=== PATIENT | male | born 1950 | race Caucasian/White ===

== ENCOUNTER 2020-03-09 00:51 | Outpatient (CLI) | payer MEDICARE, SELFPAY ==
[2020-03-09 18:38] LABS: SARS-CoV-2 RNA PCR Negative
== END 2020-03-09 00:52 | disposition home or self-care (01) ==
LOC: ANHCOVIDDT 00:51
PROVIDERS: PCP Family Medicine; Visit Provider Internal Medicine Gastroenterology
DX: Z01.812 Encounter for preprocedural laboratory examination (principal); Z20.828 Contact with and (suspected) exposure to other viral communicable diseases
CPT/HCPCS: 87635; C9803; U0003

== ENCOUNTER 2020-03-11 01:35 | Day surgery (SDC) | payer MEDICARE, SELFPAY ==
[2020-03-07 13:41] VITALS: BMI 31.1
[2020-03-11 07:55] VITALS: BP 117/74; PULSE 62; RESP 20; TEMP 36.1; O2SAT 98
[2020-03-11] MEDS: LACTATED RINGERS 1,000 ML 150 ML IV CONT (08:11)
--- NOTE | 2020-03-11 08:23 | WPDGICN ---
Assessment and Plan Assessment and plan (1) History of colon polyps: Code(s): Z86.010 - Personal history of colonic polyps Status: Acute Assessment and Plan: Patient has a distant history of adenomatous colon polyps. Plan is for surveillance colonoscopy at this time. High-fiber diet advised. Further recommendations will be given after endoscopy. GI Consult Note Consult date/time: 03/11/20 08:23 HPI: Jens Solares is a 69 year old male seen in evaluation at the request of Dr Blanca Liu. patient presents for screening colonoscopy. Patient has a history of adenomatous colon polyp in 2003. Most recent colonoscopy 2011 revealed several hyperplastic polyps. Patient presents today for follow-up examination. His current weight appetite bowel once normal. Denies abdominal pain. He has had no bleeding. His family history is noncontributory. Review of Systems Review of Systems: All systems reviewed & are unremarkable except as noted in HPI and below PMFSH Past Medical History Medical History (Updated 03/11/20 @ 08:24 by Brian Soto MD) Essential (primary) hypertension Gastro-esophageal reflux disease without esophagitis Hepatitis C antibody test negative Hypercholesterolemia Mixed hyperlipidemia Obesity (BMI 30.0-34.9) Obstructive sleep apnea (adult) (pediatric) Prostate cancer Surgical History Surgical History H/O colonoscopy (~2011) Family History Family History Father Diabetes mellitus Malignant neoplasm of prostate Family history of lung cancer Grandparent Hypertension Malignant neoplasm of prostate Other Acute myocardial infarction Social History Social History Years smoked: 5 Smoking status: Former smoker Tobacco type: cigarettes Second hand tobacco smoke exposure: No Smoking end date: 05/27/82 Additional smoking assessment comments: 1 pack per week Alcohol intake: current Drinks per week: 6 Living arrangements: with family Gender identity (if verbalized by the patient): Male Spiritual care concerns: No Meds Home Medications and Allergies Home Medications Medication Instructions Recorded Confirmed Type aspirin 81 mg tablet,delayed 81 mg PO DAILY #30 tablet 03/31/19 03/07/20 Rx release dorzolamide 22.3 mg-timolol 6.8 1 drop EACH EYE BID 04/20/19 03/07/20 History mg/mL eye drops epinephrine 0.3 mg/0.3 mL 0.3 mg IM ONCE 04/20/19 03/07/20 History injection, auto-injector fluticasone propionate 50 2 spray NASAL PRN PRN 04/20/19 03/07/20 History mcg/actuation nasal spray,suspension nystatin-triamcinolone 100,000 1 applic TOPICAL PRN PRN 04/20/19 03/07/20 History unit/g-0.1 % topical cream omeprazole 20 mg capsule,delayed 20 mg PO DAILY cap 04/20/19 03/07/20 History release travoprost 0.004 % eye drops 1 drop EACH EYE HS ml 04/20/19 03/07/20 History latanoprost 0.005 % eye drops 1 drop EACH EYE DAILY 04/21/19 03/07/20 History multivitamin 1 tablet PO DAILY 04/21/19 03/07/20 History losartan 50 mg tablet 50 mg PO DAILY #90 tablet 07/16/19 03/07/20 Rx escitalopram oxalate 10 mg tablet 10 mg PO DAILY #90 tablet 12/11/19 03/07/20 Rx atorvastatin 10 mg tablet 10 mg PO DAILY #90 tablet 01/26/20 03/07/20 Rx Allergies Allergy/AdvReac Type Severity Reaction Status Date / Time iohexol Allergy Unknown Unknown Verified 03/11/20 07:53 [From CONTRAST - CT, XRAY] bee venom protein (honey bee) Allergy SWELLING,IT Verified 03/11/20 07:53 ABRIL Vital Signs Vital Signs - 24 hr 03/11/20 07:55 Temperature 97.0 F L Pulse Rate 62 Respiratory Rate 20 Blood Pressure 117/74 Pulse Oximetry 98 Exam Narrative: Exam Narrative: Physical exam reveals patient to be alert. Vital signs stable. HEENT exam unremarkable. Lungs are clear to ausc
--- NOTE | 2020-03-11 08:46 | WPDANESEPPF ---
Anes - Initial Pre Proc Eval Procedure: Operation Date: 03/11/20 09:00 Proposed Procedures p Screening Colonoscopy - Brian Soto MD Date/Time: 03/11/20 08:46 Surgeon: Brian Soto MD Pre Op Diagnosis: neoplasm screening Patient Data Age: 69 Gender: M Height: 6 ft 2 in Weight: 112 kg Last Vital Signs Temp 97.0 F L 03/11/20 07:55 Pulse 62 03/11/20 07:55 Resp 20 03/11/20 07:55 BP 117/74 03/11/20 07:55 Pulse Ox 98 03/11/20 07:55 Allergies Allergy/AdvReac Type Severity Reaction Status Date / Time iohexol Allergy Unknown Unknown Verified 03/11/20 07:53 [From CONTRAST - CT, XRAY] bee venom protein (honey bee) Allergy SWELLING,IT Verified 03/11/20 07:53 ABRIL Home Medications Medication Instructions Recorded Confirmed Type aspirin 81 mg tablet,delayed 81 mg PO DAILY #30 tablet 03/31/19 03/07/20 Rx release dorzolamide 22.3 mg-timolol 6.8 1 drop EACH EYE BID 04/20/19 03/07/20 History mg/mL eye drops epinephrine 0.3 mg/0.3 mL 0.3 mg IM ONCE 04/20/19 03/07/20 History injection, auto-injector fluticasone propionate 50 2 spray NASAL PRN PRN 04/20/19 03/07/20 History mcg/actuation nasal spray,suspension nystatin-triamcinolone 100,000 1 applic TOPICAL PRN PRN 04/20/19 03/07/20 History unit/g-0.1 % topical cream omeprazole 20 mg capsule,delayed 20 mg PO DAILY cap 04/20/19 03/07/20 History release travoprost 0.004 % eye drops 1 drop EACH EYE HS ml 04/20/19 03/07/20 History latanoprost 0.005 % eye drops 1 drop EACH EYE DAILY 04/21/19 03/07/20 History multivitamin 1 tablet PO DAILY 04/21/19 03/07/20 History losartan 50 mg tablet 50 mg PO DAILY #90 tablet 07/16/19 03/07/20 Rx escitalopram oxalate 10 mg tablet 10 mg PO DAILY #90 tablet 12/11/19 03/07/20 Rx atorvastatin 10 mg tablet 10 mg PO DAILY #90 tablet 01/26/20 03/07/20 Rx Patient hx anesthesia problems: none Family hx anesthesia problems: none PMFSH Past Medical History Medical History (Updated 03/11/20 @ 08:24 by Brian Soto MD) Essential (primary) hypertension Gastro-esophageal reflux disease without esophagitis Hepatitis C antibody test negative Hypercholesterolemia Mixed hyperlipidemia Obesity (BMI 30.0-34.9) Obstructive sleep apnea (adult) (pediatric) Prostate cancer Surgical History Surgical History H/O colonoscopy (~2011) Family History Family History Father Diabetes mellitus Malignant neoplasm of prostate Family history of lung cancer Grandparent Hypertension Malignant neoplasm of prostate Other Acute myocardial infarction Social History Social History Years smoked: 5 Smoking status: Former smoker Tobacco type: cigarettes Second hand tobacco smoke exposure: No Smoking end date: 05/27/82 Additional smoking assessment comments: 1 pack per week Alcohol intake: current Drinks per week: 6 Living arrangements: with family Gender identity (if verbalized by the patient): Male Spiritual care concerns: No Anes - Eval Final PreProcedure Day of Procedure 03/11/20 08:46 Patient weight: obese Heart: regular rate and rhythm Lungs: clear to auscultation Airway: Mallampati scale class II Neurological: alert and oriented Last oral intake: >/= 8 hours ASA classification: III Emergent: no Anesthetic plan: proceed Anesthesia type and monitoring: general GIVS and standard monitoring Informed Consent: The patient's anesthetic plan and its attendant risks and benefits were discussed with the patient/family/POA. Questions were solicited and answers provided to the satisfaction of the patient/family/POA.
[2020-03-11 09:12] VITALS: BP 115/77; PULSE 63; RESP 16; O2SAT 96
[2020-03-11 09:22] VITALS: BP 119/79; PULSE 61; RESP 16; O2SAT 97
[2020-03-11 09:32] VITALS: BP 116/74; PULSE 66; RESP 16; O2SAT 97
== END 2020-03-11 09:51 | disposition home or self-care (01) ==
PROVIDERS: PCP Family Medicine; Visit Provider Internal Medicine Gastroenterology
PROC: 0DJD8ZZ Inspection of Lower Intestinal Tract, Via Natural or Artificial Opening Endoscopic (ICD-10-PCS; CPT 45378; principal; 2020-03-11 09:00)
DX: Z12.11 Encounter for screening for malignant neoplasm of colon (principal); K57.30 Diverticulosis of large intestine without perforation or abscess without bleeding; K64.8 Other hemorrhoids; Z86.010 Personal history of colon polyps; I10 Essential (primary) hypertension; E78.2 Mixed hyperlipidemia; K21.9 Gastro-esophageal reflux disease without esophagitis; G47.33 Obstructive sleep apnea (adult) (pediatric); Z85.46 Personal history of malignant neoplasm of prostate; Z87.891 Personal history of nicotine dependence; Z79.82 Long term (current) use of aspirin; E66.9 Obesity, unspecified; Z68.31 Body mass index [BMI] 31.0-31.9, adult
CPT/HCPCS: G0105; J2704; J7120

== ENCOUNTER 2022-06-20 14:42 | Emergency (ER) | payer MEDICARE, SELFPAY ==
--- NOTE | ~2022-06-20 | US_ITS ---
EXAMINATION: US venous doppler [facility] DATE: 06/20/2022 15:50 INDICATION: pain and swelling, left leg. TECHNIQUE: Grayscale images without and with compression and Doppler images of the left lower extremi ty veins were obtained. COMPARISON: None FINDINGS: The left common femoral vein, profunda femoral vein, femoral vein, popliteal vein, peroneal vein, pos terior tibial veins, gastrocnemius vein, and greater saphenous vein are patent. IMPRESSION: 1. Patent left lower extremity veins. No evidence of deep venous thrombosis. Reviewed, dictated and finalized at location [facility]
[2022-06-20 14:48] VITALS: BP 147/81; PULSE 99; RESP 14; TEMP 36.4; O2SAT 98
[2022-06-20 15:11] LABS: Appearance Urine Cloudy (Clear); Bilirubin Urine Negative (Negative); Blood Urine 3+ (Negative); Color Urine Yellow (Yellow); Glucose Urine UA Negative (Negative); Ketones Urine Negative (Negative); Leukocyte Esterase Ur 1+ LEU/UL (Negative); Nitrate Urine Positive (Negative); Protein Urine 2+ mg/dL (Negative); Urobilinogen Urine 0.2 mg/dL (<2.0); pH Urine 6.5 (5.0-9.0)
[2022-06-20 15:23] LABS: Add Urine Microscopic? YES; Bacteria Urine Trace /hpf; Mucus Urine Rare /lpf; RBC Urine >75 /hpf (0-2); Squamous Epithelial Cell Urine Few /hpf (Few); WBC Clumps Urine Present /HPF; WBC Urine >75 /hpf
--- NOTE | 2022-06-20 15:49 | ED.GENADULT ---
HPI - General Adult General Chief complaint: Extremity Problem,Nontraumatic Stated complaint: extremity problem Time Seen by Provider: 06/20/22 14:55 History of Present Illness HPI narrative: 71-year-old male history of, dyslipidemia, GERD, depression, prostate cancer, DVT presents to the emergency room for multiple medical problems. Patient states 5 days ago he noticed a tender red area to his left inner thigh. Since the onset he has noticed the redness has moved down his leg into his calf. Denies any injury or trauma. Denies fevers. Patient also complaining of hematuria without dysuria. Related Data Home Medications Medication Instructions Recorded Confirmed dorzolamide 22.3 mg-timolol 6.8 1 drop ophthalmic (eye) BID 04/20/19 02/13/22 mg/mL eye drops epinephrine 0.3 mg/0.3 mL 0.3 mg IM ONCE 04/20/19 02/13/22 injection, auto-injector fluticasone propionate 50 2 spray intranasal PRN PRN 04/20/19 02/13/22 mcg/actuation nasal Congestion spray,suspension omeprazole 20 mg capsule,delayed 20 mg PO DAILY 04/20/19 02/13/22 release travoprost 0.004 % eye drops 1 drop ophthalmic (eye) HS 04/20/19 02/13/22 (Travatan Z) latanoprost 0.005 % eye drops 1 drop ophthalmic (eye) DAILY 04/21/19 02/13/22 multivitamin 1 tablet PO DAILY 04/21/19 02/13/22 Allergies Allergy/AdvReac Type Severity Reaction Status Date / Time iohexol Allergy Unknown Unknown Verified 06/20/22 14:53 [From CONTRAST - CT, XRAY] bee venom protein (honey bee) Allergy SWELLING,IT Verified 06/20/22 14:53 ABRIL Review of Systems Review of Systems: CONSTITUTIONAL: Denies fever, chills, or sweats. EYES: Denies visual changes, redness, or discharge. ENT: Denies rhinorrhea, congestion, sore throat, or otalgia. CARDIOVASCULAR: Denies chest pain, palpitations, or edema. RESPIRATORY: Denies cough or dyspnea. GASTROINTESTINAL: Denies abdominal pain, nausea, vomiting, or diarrhea. GENITOURINARY: Reports hematuria. SKIN: Denies rash or itching. MUSCULOSKELETAL: Denies back pain, joint pain, or myalgia. NEUROLOGIC: Denies headache, numbness, dizziness, or weakness. PSYCHIATRIC: Denies anxiety or depression. [facility] Past Medical History Medical History Essential (primary) hypertension Gastro-esophageal reflux disease without esophagitis Hepatitis C antibody test negative (04/19/17) Hypercholesterolemia Mixed hyperlipidemia Obesity (BMI 30.0-34.9) Obstructive sleep apnea (adult) (pediatric) Prostate cancer Surgical History Surgical History H/O colonoscopy (~2011) Family History Family History Father Diabetes mellitus Malignant neoplasm of prostate Family history of lung cancer Grandparent Hypertension Malignant neoplasm of prostate Other Acute myocardial infarction Social History Social History Years smoked: 5 Smoking status: Former smoker Tobacco type: cigarettes Second hand tobacco smoke exposure: No Smoking end date: 05/27/82 Additional smoking assessment comments: 1 pack per week Alcohol intake: current Drinks per week: 6 Lack of Transportation: No Lack of Food: Never True Current Housing: I Have Housing Concerned About Future Housing: No Difficulty Paying Gas/Electric Bills: No Difficulty Paying for Meds: No Currently Unemployed: No Education: Master's Degree or Higher Difficulty w/ Childcare or Family Care: No Living arrangements: with family Gender identity (if verbalized by the patient): Male Spiritual care concerns: No Exam Narrative: GENERAL: Well-appearing, well-nourished, no physical limitations, and in no acute distress. HEAD: Normocephalic, atraumatic. EYES: Conjunctivae normal, PERRLA and EOMI. CHEST: Clear to auscultation. No respiratory distress.
[2022-06-20 16:24] VITALS: BP 156/76; PULSE 90; RESP 14; TEMP 37.1; O2SAT 100
== END 2022-06-20 16:34 | disposition home or self-care (01) ==
PROVIDERS: Emergency Provider Nurse Practitioner Family; PCP Family Medicine
DX: I80.3 Phlebitis and thrombophlebitis of lower extremities, unspecified (principal); N39.0 Urinary tract infection, site not specified; I10 Essential (primary) hypertension; K21.9 Gastro-esophageal reflux disease without esophagitis; E78.5 Hyperlipidemia, unspecified; G47.30 Sleep apnea, unspecified
CPT/HCPCS: 81001; 87077; 87086; 87186; 93971; 99284

== ENCOUNTER 2022-08-30 15:26 | Emergency (ER) | payer MEDICARE, SELFPAY ==
[2022-08-30 15:38] VITALS: BP 140/82; PULSE 73; RESP 16; TEMP 36.2; O2SAT 97
--- NOTE | 2022-08-30 15:46 | ED.SKABFB ---
HPI - Skin/Abscess/Foreign Bdy General Chief complaint: Skin/Abscess/Foreign Body Stated complaint: Skin Problem Source: patient and RN notes reviewed History of Present Illness HPI narrative: 72-year-old male presents to urgent care with an abscess to his right back. Patient states he has had this for quite some time but the last 2-3 days it has gotten inflamed. Patient reports some drainage from the area the other day. Patient did apply Neosporin the area. Denies any fevers, chills, or other complaints. Related Data Home Medications Medication Instructions Recorded Confirmed dorzolamide 22.3 mg-timolol 6.8 1 drop ophthalmic (eye) BID 04/20/19 08/30/22 mg/mL eye drops epinephrine 0.3 mg/0.3 mL 0.3 mg IM ONCE 04/20/19 08/30/22 injection, auto-injector fluticasone propionate 50 2 spray intranasal PRN PRN 04/20/19 08/30/22 mcg/actuation nasal Congestion spray,suspension omeprazole 20 mg capsule,delayed 20 mg PO DAILY 04/20/19 07/06/22 release travoprost 0.004 % eye drops 1 drop ophthalmic (eye) HS 04/20/19 07/06/22 (Travatan Z) latanoprost 0.005 % eye drops 1 drop ophthalmic (eye) DAILY 04/21/19 08/30/22 multivitamin 1 tablet PO DAILY 04/21/19 07/06/22 Allergies Allergy/AdvReac Type Severity Reaction Status Date / Time iohexol Allergy Unknown Unknown Verified 08/30/22 16:06 [From CONTRAST - CT, XRAY] bee venom protein (honey bee) Allergy SWELLING,IT Verified 08/30/22 16:06 ABRIL Review of Systems Review of Systems: CONSTITUTIONAL: Denies fever, chills, or sweats. EYES: Denies visual changes, redness, or discharge. ENT: Denies otalgia and sore throat CARDIOVASCULAR: Denies chest pain, palpitations, or edema. RESPIRATORY: Denies cough or dyspnea. GASTROINTESTINAL: Denies abdominal pain, nausea, vomiting, or diarrhea. GENITOURINARY: Denies dysuria or hematuria. SKIN: Abscess MUSCULOSKELETAL: Denies back pain, joint pain, or myalgia. NEUROLOGIC: Denies headache, numbness, or weakness. Pertinent positives per HPI. PMFSH Past Medical History Medical History Essential (primary) hypertension Gastro-esophageal reflux disease without esophagitis Hepatitis C antibody test negative (04/19/17) Hypercholesterolemia Mixed hyperlipidemia Obesity (BMI 30.0-34.9) Obstructive sleep apnea (adult) (pediatric) Prostate cancer Surgical History Surgical History H/O colonoscopy (~2011) Family History Family History Father Diabetes mellitus Malignant neoplasm of prostate Family history of lung cancer Grandparent Hypertension Malignant neoplasm of prostate Other Acute myocardial infarction Social History Social History Years smoked: 5 Smoking status: Former smoker Tobacco type: cigarettes Second hand tobacco smoke exposure: No Smoking end date: 05/27/82 Additional smoking assessment comments: 1 pack per week Alcohol intake: current Drinks per week: 6 Lack of Transportation: No Lack of Food: Never True Current Housing: I Have Housing Concerned About Future Housing: No Difficulty Paying Gas/Electric Bills: No Difficulty Paying for Meds: No Currently Unemployed: No Education: Master's Degree or Higher Difficulty w/ Childcare or Family Care: No Living arrangements: with family Gender identity (if verbalized by the patient): Male Spiritual care concerns: No Comments At the time of my signature, I reviewed and agree with the nursing past medical, surgical, social, and family history. There is no relevant family history pertinent to the patient complaint. Exam Narrative: GENERAL: This is a well-nourished, well-developed patient, in no apparent distress. HEAD: normocephalic, atraumatic. EYES: Sclera clear/white. [employer]
== END 2022-08-30 16:26 | disposition home or self-care (01) ==
PROVIDERS: Emergency Provider Nurse Practitioner Family
DX: L02.212 Cutaneous abscess of back [any part, except buttock and flank] (principal); Z87.891 Personal history of nicotine dependence; K21.9 Gastro-esophageal reflux disease without esophagitis; E78.00 Pure hypercholesterolemia, unspecified; E78.2 Mixed hyperlipidemia; E66.9 Obesity, unspecified; Z68.32 Body mass index [BMI] 32.0-32.9, adult; Z85.46 Personal history of malignant neoplasm of prostate
CPT/HCPCS: 10160; 87070; 87205; 99213; G0463

== ENCOUNTER 2022-09-05 13:37 | Emergency (ER) | payer MEDICARE, SELFPAY ==
[2022-09-05 13:43] VITALS: BP 157/80; PULSE 70; RESP 14; TEMP 36.6; O2SAT 99
--- NOTE | 2022-09-05 14:41 | ED.SKABFB ---
HPI - Skin/Abscess/Foreign Bdy General Chief complaint: Skin/Abscess/Foreign Body Stated complaint: Abbcesson back Time Seen by Provider: 09/05/22 14:41 Source: patient, RN notes reviewed and old records reviewed Mode of arrival: ambulatory Limitations: no limitations History of Present Illness HPI narrative: 72 year old male who presents to express care with redness swelling and pain to abscess noted to mid back region.Patient reports that he has had this raised fatty type of lesion to his back for months but in past 2 weeks area has become infected. He was here about one week ago and had area drained and was started on Doxycycline. Patient reports that it was initially better and then for the past 2-3 days pain has increased and redness with site burning and tender. Patient denies any known fevers. MD complaint: abscess/boil (mid back) Onset (ago): day(s) (increased symptoms past 2-3 days, initally 2 weeks duration total) Severity scale (1-10): 3 Treatments prior to arrival: antibiotic (taking antibiotic of Doxycycline) Related Data Home Medications Medication Instructions Recorded Confirmed dorzolamide 22.3 mg-timolol 6.8 1 drop ophthalmic (eye) BID 04/20/19 09/05/22 mg/mL eye drops epinephrine 0.3 mg/0.3 mL 0.3 mg IM ONCE 04/20/19 09/05/22 injection, auto-injector fluticasone propionate 50 2 spray intranasal PRN PRN 04/20/19 09/05/22 mcg/actuation nasal Congestion spray,suspension omeprazole 20 mg capsule,delayed 20 mg PO DAILY 04/20/19 09/05/22 release travoprost 0.004 % eye drops 1 drop ophthalmic (eye) HS 04/20/19 09/05/22 (Travatan Z) latanoprost 0.005 % eye drops 1 drop ophthalmic (eye) DAILY 04/21/19 09/05/22 multivitamin 1 tablet PO DAILY 04/21/19 09/05/22 escitalopram oxalate 10 mg tablet 10 mg PO DAILY 09/05/22 09/05/22 Allergies Allergy/AdvReac Type Severity Reaction Status Date / Time iohexol Allergy Unknown Unknown Verified 09/05/22 14:09 [From CONTRAST - CT, XRAY] bee venom protein (honey bee) Allergy SWELLING,IT Verified 09/05/22 14:09 ABRIL Review of Systems Review of Systems: CONSTITUTIONAL: Denies fever, chills, or sweats. EYES: Denies visual changes, redness, or discharge. ENT: Denies rhinorrhea, congestion, sore throat, or otalgia. CARDIOVASCULAR: Denies chest pain, palpitations, or edema. RESPIRATORY: Denies cough or dyspnea. GASTROINTESTINAL: Denies abdominal pain, nausea, vomiting, or diarrhea. GENITOURINARY: Denies dysuria or hematuria. SKIN: Denies rash or itching. red raised tender warm circular area to mid back scabbed center. MUSCULOSKELETAL: Denies back pain, joint pain, or myalgia. NEUROLOGIC: Denies headache, numbness, or weakness. PSYCHIATRIC: Denies anxiety or depression. All systems reviewed & are unremarkable except as noted in HPI and below PMFSH Past Medical History Medical History Essential (primary) hypertension Gastro-esophageal reflux disease without esophagitis Hepatitis C antibody test negative (04/19/17) Hypercholesterolemia Mixed hyperlipidemia Obesity (BMI 30.0-34.9) Obstructive sleep apnea (adult) (pediatric) Prostate cancer Surgical History Surgical History H/O colonoscopy (~2011) Family History Family History Father Diabetes mellitus Malignant neoplasm of prostate Family history of lung cancer Grandparent Hypertension Malignant neoplasm of prostate Other Acute myocardial infarction Social History Social History Years smoked: 5 Smoking status: Former smoker Tobacco type: cigarettes Second hand tobacco smoke exposure: No Smoking end date: 05/27/82 Additional smoking assessment comments: 1 pack per week Alcohol intake: current Drinks per week: 6 Lack of Transportation: No Lack of Food: Ne
== END 2022-09-05 15:30 | disposition home or self-care (01) ==
PROVIDERS: Emergency Provider Registered Nurse; PCP Family Medicine
DX: L72.3 Sebaceous cyst (principal); Z87.891 Personal history of nicotine dependence; I10 Essential (primary) hypertension; K21.9 Gastro-esophageal reflux disease without esophagitis; E78.00 Pure hypercholesterolemia, unspecified; E78.2 Mixed hyperlipidemia; E66.9 Obesity, unspecified; Z68.32 Body mass index [BMI] 32.0-32.9, adult; Z85.46 Personal history of malignant neoplasm of prostate; G47.33 Obstructive sleep apnea (adult) (pediatric)
CPT/HCPCS: 10060; 87070; 87077; 87205; 99213; G0463

== ENCOUNTER 2022-10-10 14:40 | Outpatient (CLI) | payer MEDICARE, SELFPAY ==
--- NOTE | ~2022-10-10 | CT_ITS ---
EXAMINATION: CT abdomen pelvis w con DATE: 10/10/2022 15:02 INDICATION: Paget's disease TECHNIQUE: Computed tomography (CT) of the abdomen and pelvis was performed with 100 mL Omnipaque-350 intravenous contrast. Automated exposure control and iterative reconstruction technique were employe d. The dose-length product was 1343.05 mGy-cm. COMPARISON: CT abdomen dated 09/18/2007 FINDINGS: Minimal dependent atelectasis in bilateral lower lobes. Heart size is normal. No pericardial or pleur al effusion. Diffuse hepatic steatosis with region of focal fatty sparing along the gallbladder fossa and bridgette hepatis. Gallbladder, spleen, pancreas, bilateral adrenal glands are and) normal. Again se en are several parapelvic cysts at the left renal hilum. Incidentally noted circumaortic left renal v eins with smaller anterior draining vein and larger caliber vein draining posterior to the normal haritha iber aorta. Mild to moderate diverticulosis along the descending and sigmoid colon without adjacent c omparison to suggest diverticulitis. Small bowel and appendix are normal. Bladder is normal. Prostate appears small or potentially absent suggesting prior prostatectomy. There are surgical clips in the region of the prostate, seminal vesicles and extending along the bilateral iliac chains suggesting pr ior pelvic lymph node dissection. No free intraperitoneal gas or fluid. No pathologically enlarged ab dominal or pelvic lymphadenopathy. Small bilateral fat-containing inguinal hernias. Approximately 2.7 x 1.9 cm subtle sclerotic lesion centered in the L3 vertebral body lucency study from 2007 and which raises suspicion for metastatic disease. There are a couple additional smaller more dense sclerotic lesion in the left and right pelvis with either spiculated margins are aligned along the axis of the trabecula more typical of bone islands. No evident pagetoid changes identified. IMPRESSION: 1. Indeterminate 2.7 cm sclerotic lesion in the L3 vertebral body suspicious for metastatic disease. Correlate with clinical history and consider further evaluation with either bone scan or PSMA PET aly dy if there is a known history of prior prostate cancer which suggested by the likely change of prior prostatectomy and pelvic lymph node dissection. 2. Diverticulosis. Reviewed, dictated and finalized at location A. IMPRESSION: 1. Indeterminate 2.7 cm sclerotic lesion in the L3 vertebral body suspicious fo r metastatic disease. Correlate with clinical history and consider further eval uation with either bone scan or PSMA PET study if there is a known history of p rior prostate cancer which suggested by the likely change of prior prostatectom y and pelvic lymph node dissection. 2. Diverticulosis.
[2022-10-10 15:05] LABS: Estimated Glomerular Filt Rate > 60
== END 2022-10-10 14:41 | disposition home or self-care (01) ==
PROVIDERS: PCP Family Medicine; Visit Provider Internal Medicine Hematology & Oncology
DX: C44.99 Other specified malignant neoplasm of skin, unspecified (principal); R93.7 Abnormal findings on diagnostic imaging of other parts of musculoskeletal system; K57.90 Diverticulosis of intestine, part unspecified, without perforation or abscess without bleeding
CPT/HCPCS: 74177; Q9967

== ENCOUNTER 2022-11-08 15:02 | Outpatient (CLI) | payer MEDICARE, SELFPAY ==
[2022-11-08 22:29] LABS: Prostate Specific Antigen < 0.1 ng/mL (< OR = 4.0)
== END 2022-11-08 15:03 | disposition home or self-care (01) ==
PROVIDERS: PCP Family Medicine; Visit Provider Internal Medicine Hematology & Oncology
DX: C61 Malignant neoplasm of prostate (principal)
CPT/HCPCS: 36415; 84153

== ENCOUNTER 2022-11-16 11:59 | Outpatient (CLI) | payer MEDICARE, SELFPAY ==
--- NOTE | ~2022-11-16 | PE_ITS ---
EXAMINATION: PET_PETPSMAST_PT DATE: 11/16/2022 14:22 INDICATION: Prostate cancer TECHNIQUE: 4.691 mCi of Ga-68 gazetotide (Illuccix) was administered i.v. Low dose computed tomograp hy (CT) images were acquired from the base of the brain to the base of the brain to the proximal thig hs for attenuation correction and anatomic localization. Positron emission tomography (PET) images we re acquired in the same distribution beginning 88 minutes after injection. Images including fused PET /CT images were reconstructed in axial, coronal, and sagittal planes. 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 The dose-length product was 816.31mGy-cm. COMPARISON: CT dated 10/10/2022 FINDINGS: Head/neck: Typical pattern of symmetric physiologic increased activity in the lacrimal, parotid and submandibula r glands as well as at the glottis. No pathologically enlarged cervical lymphadenopathy or suspicious foci of increased uptake in the visualized head or neck. Chest: Mild dependent atelectasis in both lungs. No suspicious pulmonary nodules, pneumonia, pulmonary edema or pleural effusion. Heart size is normal. No pericardial effusion. Atherosclerotic coronary artery calcifications. Thoracic aorta is normal in caliber. No pathologically enlarged or PSMA avid thoracic lymphadenopathy. Abdomen/pelvis/proximal thighs: Physiologic renal accumulation and excretion of activity in the kidneys and along portions of ureters . Status post prostatectomy with no abnormal activity site from the urinary activity in the bladder t o suggest recurrent disease. Normal degree and slightly heterogenous pattern of increased uptake thro ughout the liver and spleen without radiologic correlate or dominant PSMA avid lesion. The gallbladde r, pancreas and bilateral adrenal glands are normal. Moderate uptake scattered throughout the bowels with typical duodenal and proximal jejunal predominance and without radiologic correlate, also likely physiologic. Normal appendix. No other abnormal foci of increased uptake or pathologically enlarged lymphadenopathy in the abdomen, pelvis or proximal thighs. Musculoskeletal: No abnormal uptake associated with the previous noted sclerotic lesion in the L3 vertebral body to magana ggest metastatic prostate cancer. On review of CT from 09/18/2007 there is subtle corresponding sclero sis in the vertebral body and which was without abnormal uptake on a bone scan performed the same day consistent with a benign etiology. No other suspicious lytic, blastic or PSMA avid bone lesions. IMPRESSION: 1. No abnormal PSMA activity either at the sclerotic lesion at L3 or throughout the remainder of the body to suggest metastatic disease. Reviewed, dictated and finalized at location A.
== END 2022-11-16 12:00 | disposition home or self-care (01) ==
PROVIDERS: PCP Family Medicine; Visit Provider Internal Medicine Hematology & Oncology
DX: C61 Malignant neoplasm of prostate (principal); M89.9 Disorder of bone, unspecified
CPT/HCPCS: 78815; A9595; A9596

== ENCOUNTER 2024-01-05 10:51 | Emergency (ER) | payer MEDICARE, SELFPAY ==
[2024-01-05 10:55] VITALS: BP 133/89; PULSE 78; RESP 20; TEMP 37; O2SAT 98
--- NOTE | 2024-01-05 11:09 | ED.EAR ---
HPI - Ear Problem General Chief complaint: Ear Stated complaint: Ear pain Source: patient Mode of arrival: ambulatory Limitations: no limitations History of Present Illness HPI Narrative: 73-year-old male presented for complaint of left ear pain for over 1 week. States at onset he irrigated the ear and removed ear wax. States he changed hearing aides about 2 weeks ago. Denies tinnitus, dizziness, n/v/d/f/c. denies recent illness. MD Complaint: ear pain Related Data Home Medications Medication Instructions Recorded Confirmed dorzolamide 22.3 mg-timolol 6.8 1 drop ophthalmic (eye) BID 04/20/19 01/05/24 mg/mL eye drops epinephrine 0.3 mg/0.3 mL 0.3 mg IM ONCE 04/20/19 01/05/24 injection, auto-injector omeprazole 20 mg capsule,delayed 20 mg PO DAILY 04/20/19 01/05/24 release travoprost 0.004 % eye drops 1 drop ophthalmic (eye) HS 04/20/19 01/05/24 (Travatan Z) latanoprost 0.005 % eye drops 1 drop ophthalmic (eye) DAILY 04/21/19 01/05/24 multivitamin 1 tablet PO DAILY 04/21/19 01/05/24 Allergies Allergy/AdvReac Type Severity Reaction Status Date / Time iohexol Allergy Unknown Unknown Verified 01/05/24 11:17 [From CONTRAST - CT, XRAY] bee venom protein (honey bee) Allergy SWELLING,IT Verified 01/05/24 11:17 ABRIL Review of Systems Review of Systems: CONSTITUTIONAL: Denies malaise, chills, or fever. EYES: Denies visual changes, redness, or discharge. ENT: Denies rhinorrhea, congestion, sinus pain, and sore throat. Reports ear pain CARDIOVASCULAR: Denies chest pain, palpitations, or edema. RESPIRATORY: Denies cough or dyspnea. GASTROINTESTINAL: Denies abdominal pain, nausea, vomiting, diarrhea SKIN: Denies rash or itching. MUSCULOSKELETAL: Denies myalgia. NEUROLOGIC: Denies headache. All systems reviewed & are unremarkable except as noted in HPI and below PMFSH Past Medical History Medical History Essential (primary) hypertension Gastro-esophageal reflux disease without esophagitis Hepatitis C antibody test negative (04/19/17) Hypercholesterolemia Mixed hyperlipidemia Obesity (BMI 30.0-34.9) Obstructive sleep apnea (adult) (pediatric) Prostate cancer Surgical History Surgical History H/O colonoscopy (~2011) Family History Family History Father Diabetes mellitus Malignant neoplasm of prostate Family history of lung cancer Grandparent Hypertension Malignant neoplasm of prostate Other Acute myocardial infarction Social History Social History Years smoked: 5 Smoking status: Former smoker Tobacco type: cigarettes Second hand tobacco smoke exposure: No Smoking end date: 05/27/82 Additional smoking assessment comments: 1 pack per week Alcohol intake: current Drinks per week: 6 Lack of Transportation: No Lack of Food: Never True Current Housing: I Have Housing Concerned About Future Housing: No Difficulty Paying Gas/Electric Bills: No Difficulty Paying for Meds: No Currently Unemployed: No Education: Master's Degree or Higher Difficulty w/ Childcare or Family Care: No Living arrangements: with family Gender identity (if verbalized by the patient): Male Spiritual care concerns: No Comments At time of signature, agree with nursing past medical, surgical, social and family history. There is no relevant family history pertinent to the presenting complaint Exam Narrative: GENERAL: Well-appearing EYES: PERRLA, conjunctivae clear ENT: Nares clear. Mucous membranes moist. Right TM pearly carter with normal light reflex bilaterally; Left clear effusion, tender canal. no tragal tenderness. Oropharynx not erythematous without lesions. NECK: Supple. No lymphadenopathy CHEST: Clear to auscultation, breath sounds equal. No wheez
== END 2024-01-05 11:20 | disposition home or self-care (01) ==
PROVIDERS: Emergency Provider Nurse Practitioner Family; PCP Family Medicine
DX: H65.02 Acute serous otitis media, left ear (principal); Z87.891 Personal history of nicotine dependence; I10 Essential (primary) hypertension; K21.9 Gastro-esophageal reflux disease without esophagitis; E78.00 Pure hypercholesterolemia, unspecified; E78.2 Mixed hyperlipidemia; E66.9 Obesity, unspecified; Z68.32 Body mass index [BMI] 32.0-32.9, adult; Z85.46 Personal history of malignant neoplasm of prostate
CPT/HCPCS: 99213; G0463

== ENCOUNTER 2024-09-25 11:11 | Emergency (ER) | payer MEDICARE, SELFPAY ==
[2024-09-25 11:13] VITALS: BP 134/71; PULSE 85; RESP 18; TEMP 35.8; O2SAT 98
--- NOTE | 2024-09-25 13:45 | ED.GENADULT ---
HPI - General Adult General Chief complaint: Skin/Abscess/Foreign Body Stated complaint: Cyst on back-sent by PMD Time Seen by Provider: 09/25/24 11:56 History of Present Illness HPI narrative: 74-year-old male presented to the emergency department for evaluation for worsening abscess on his back. Patient did have this strange to few days ago the primary care physician but states that he was having increased pain and swelling he did have some purulent discharge from the wound this morning. Bedside ultrasound did confirm residual abscess. Related Data Home Medications ?Medication ?Instructions ?Recorded ?Confirmed ?Last Taken ?Type dorzolamide 22.3 mg-timolol 6.8 1 drop ophthalmic (eye) BID 04/20/19 09/22/24 05/14/19 History mg/mL eye drops epinephrine 0.3 mg/0.3 mL 0.3 mg IM ONCE 04/20/19 09/22/24 Unknown History injection, auto-injector omeprazole 20 mg capsule,delayed 20 mg PO DAILY 04/20/19 09/22/24 05/14/19 History release travoprost 0.004 % eye drops 1 drop ophthalmic (eye) HS 04/20/19 09/22/24 05/13/19 History (Travatan Z) latanoprost 0.005 % eye drops 1 drop ophthalmic (eye) DAILY 04/21/19 09/22/24 05/14/19 History multivitamin 1 tablet PO DAILY 04/21/19 09/22/24 05/10/19 History Allergies Allergy/AdvReac Type Severity Reaction Status Date / Time iohexol (From CONTRAST - CT, Allergy Unknown Unknown Verified 09/25/24 11:34 XRAY) bee venom protein (honey bee) Allergy SWELLING,IT Verified 09/25/24 11:34 ABRIL Review of Systems Review of Systems: All systems reviewed & are unremarkable except as noted in HPI and below PMFSH Past Medical History Medical History Hypercholesterolemia Essential (primary) hypertension Gastro-esophageal reflux disease without esophagitis Mixed hyperlipidemia Obesity (BMI 30.0-34.9) Obstructive sleep apnea (adult) (pediatric) Hepatitis C antibody test negative (04/19/17) Prostate cancer Surgical History Surgical History H/O colonoscopy (~2011) Family History Family History Father Diabetes mellitus Malignant neoplasm of prostate Family history of lung cancer Grandparent Hypertension Malignant neoplasm of prostate Other Acute myocardial infarction Social History Social History Years smoked: 5 Smoking status: Former smoker Tobacco type: cigarettes Second hand tobacco smoke exposure: No Smoking end date: 05/27/82 Additional smoking assessment comments: 1 pack per week Alcohol intake: current Drinks per week: 6 Lack of Transportation: No Lack of Food: Never True Current Housing: I Have Housing Concerned About Future Housing: No Difficulty Paying Gas/Electric Bills: No Difficulty Paying for Meds: No Currently Unemployed: No Education: Master's Degree or Higher Difficulty w/ Childcare or Family Care: No Living arrangements: with family Gender identity (if verbalized by the patient): Male Spiritual care concerns: No Exam Narrative: APPEARANCE: Well appearing, no pain, no distress, well-nourished. HEAD: normocephalic, atraumatic. EYES: PERRLA/EOMI, conjunctivae clear. NOSE: Normal no drainage EARS:TMS clear with good light reflex. THROAT: Pharynx clear, no exudate. NECK: Supple. No adenopathy, no masses. RESPIRATORY: Airway patent, respirations nonlabored. Clear to auscultation bilaterally, no rales, rhonchi, wheezing. CARDIOVASCULAR: Regular rate and rhythm without murmurs rubs or gallops. ABDOMINAL: Soft, nontender, nondistended, normal bowel sounds MUSCULOSKELETAL: Moves all extremities. Strength/ROM intact, No edema, No calf tenderness. NEURO: Alert. Cranial nerves II through XII intact. Good gait. Good coordination SKIN: Erythema with fluctuance and abscess on back Course Vital Signs Vital signs: Vital Signs Temperature 96.4 F L 09/25/24 11:13 Pulse Rate 85 09/25/24 11:13 Respiratory Rate 18 09/25/24 11:13 Blood Pressure 134/71 09/25/24 11:13 Pulse Oximetry 98 09/25/24 11:13 Oxygen Delivery Room Air 09/25/24 11:13 Temperature 96.4 F L 09/25/24 11:13 Pulse Rate 85 09/25/24 11:13 Respiratory Rate 18 09/25/24 11:13 Blood Pressure 134/71 09/25/24 11:13 Pulse Oximetry 98 09/25/24 11:13 Oxygen Delivery Room Air 09/25/24 11:13 Procedures Abscess I/D back: Date of Incision: 09/25/24 Time of Incision: 13:45 Side (if applicable): right Sedation/analgesia: none Local Anesthetic: lidocaine 1% and with epi Amount of anesthesia used (mL): 4 Technique: incised with #11 blade Amount of fluid expressed (mL): 4 Irrigation: Yes Packing used?: iodoform I&D Results: Pus and Blood Abcess I&D Additional Comments: No complications. Medical Decision Making MDM Narrative Medical decision making narrative: 74-year-old male presents emergency department for evaluation for worsening abscess. Patient has been on Augmentin but was switched to Bactrim. Bedside ultrasound did confirm residual abscess. Abscess was I and D does described in the procedure note. Patient tolerated the procedure well. Patient was treated with his 1st dose of Bactrim the emergency department. All questions concerns were addressed. Differential Diagnosis Differential Diagnosis: Abscess, cyst, cellulitis Vital Signs Vital Signs: Vital Signs Temperature 96.4 F L 09/25/24 11:13 Pulse Rate 85 09/25/24 11:13 Respiratory Rate 18 09/25/24 11:13 Blood Pressure 134/71 09/25/24 11:13 Pulse Oximetry 98 09/25/24 11:13 Oxygen Delivery Room Air 09/25/24 11:13 Temperature 96.4 F L 09/25/24 11:13 Pulse Rate 85 09/25/24 11:13 Respiratory Rate 18 09/25/24 11:13 Blood Pressure 134/71 09/25/24 11:13 Pulse Oximetry 98 09/25/24 11:13 Oxygen Delivery Room Air 09/25/24 11:13 Discharge Plan Discharge Clinical Impression: Abscess Patient Disposition: Home Condition: Stable Instructions: Antibiotic Form, Abscess (ED) Additional Instructions: Wound care as directed. You do have packing in the wound and this will need to be removed in 2 days if it does not come out spontaneously. Stop taking the Augmentin and switch to Bactrim. You were treated with your 1st dose of Bactrim in emergency department. Have close follow-up with your primary care physician for a wound check. Patient Language: Gibraltarian Prescriptions: New sulfamethoxazole-trimethoprim [Bactrim DS] 800-160 mg tablet 1 tablet PO Q12H 7 Days Qty: 14 0RF No Action dorzolamide-timolol 22.3-6.8 mg/mL drops 1 drop EACH EYE BID epinephrine 0.3 mg/0.3 mL auto-injector 0.3 mg IM ONCE omeprazole 20 mg capsule,delayed release(DR/EC) 20 mg PO DAILY Travatan Z 0.004 % drops 1 drop EACH EYE HS multivitamin Tablet 1 tablet PO DAILY latanoprost 0.005 % drops 1 drop EACH EYE DAILY atorvastatin 40 mg tablet 40 mg PO QHS Qty: 90 1RF meloxicam 15 mg tablet 15 mg PO DAILY Qty: 90 0RF Mounjaro 2.5 mg/0.5 mL pen injector 2.5 mg subcut WEEKLY Qty: 2 0RF Rx Instructions: for 4 weeks amoxicillin-pot clavulanate 875-125 mg tablet 1 tablet PO BID Qty: 20 0RF aspirin [Adult Low Dose Aspirin] 81 mg tablet,delayed release (DR/EC) 81 mg PO DAILY Qty: 30 0RF fluticasone propionate 50 mcg/actuation spray,suspension 2 spray NASAL PRN PRN (Reason: Congestion) Qty: 16 4RF (DME) CPAP See Rx Instructions .Route .MEDSUPPLY Qty: 1 0RF Rx Instructions: Pt compliant per report losartan 50 mg tablet 50 mg PO DAILY Qty: 90 1RF escitalopram oxalate 10 mg tablet 10 mg PO DAILY Qty: 90 1RF Follow-up/Referrals: Blanca Liu DO [Primary Care Provider] -
[2024-09-25] MEDS: SULFAMETHOXAZOLE/TRIMETHOPRIM 800/160 MG DS TABLET 1 TAB PO (14:00)
--- OUTSIDE RECORDS SUMMARY | 2024-09-26 12:32 | XMS_ITS | Clinical Summary ---
Author Organization [facility] Address [address] [place] [address] Phone Care Team Providers Care Classroom Instructional Aide Name Role Phone Unavailable Unavailable Unavailable Reason for Visit and Chief Complaint GENERAL OFFICE VISIT Plan of Treatment No Plan of Treatment Recorded Assessments Includes: Assessments from this encounter No Assessments Recorded Medical Equipment - Implanted Devices Includes: Current Devices No Medical Equipment Recorded Medications Administered Includes: Administered Medications from this encounter No Administered Medications Recorded Results Includes: Results discussed during this encounter No Results Recorded For Specified Dates History of Present Illness Includes: History of Present Illness from this encounter No History of Present Illness Recorded Social History No Social History Recorded - Smoking Status Unknown Medical History Includes: Medical History addressed during this encounter No Medical History Recorded Family History Includes: Family History addressed during this encounter No Family History Recorded Review of Systems Includes: Review of Systems from this encounter No Review of Systems Recorded Mental Status Includes: Mental Status from this encounter No Mental Status Recorded Functional Status Includes: Functional Status from this encounter No Functional Status Recorded Physical Exam Includes: Physical Exam from this encounter No Physical Exam Recorded Encounters Encounter Provider Location Date Check-In Time Check- Out Time Diagnosis GENERAL OFFICE VISIT [facility] 8 4:15PM 11:59PM Clinical Notes Includes: Clinical Notes from this encounter No Clinical Notes Recorded
--- OUTSIDE RECORDS SUMMARY | 2024-09-26 12:32 | XMS_ITS | Clinical Summary ---
Author Organization [facility] Address [address] [place] [place] [address] Phone Care Team Providers Care Consultative Sales Associate Name Role Phone Unavailable Unavailable Unavailable Reason for Visit and Chief Complaint POST OP VISIT Plan of Treatment No Plan of [...] Date Check-In Time Check- Out Time Diagnosis POST OP VISIT [facility] 7 4:30PM 11:59PM Clinical Notes Includes: Clinical Notes from this encounter No Clinical Notes Recorded
--- OUTSIDE RECORDS SUMMARY | 2024-09-26 12:32 | XMS_ITS ---
Care Plan - [facility] Created on: September 26, 2024 KATE CHO : 1950 Sex: Male Author Organization [facility] Address [address] [place] [address] Phone Care Team Providers Care Business Management Professor Name Role Phone Unavailable Unavailable Unavailable
--- OUTSIDE RECORDS SUMMARY | 2024-09-26 12:32 | XMS_ITS | Clinical Summary ---
Author Organization [facility] Address [address] [place] [address] Phone Care Team Providers Care Oil Rig Driller Name Role Phone Unavailable Unavailable Unavailable Reason [...] from this encounter No Physical Exam Recorded Clinical Notes Includes: Clinical Notes from this encounter No Clinical Notes Recorded
--- OUTSIDE RECORDS SUMMARY | 2024-09-26 12:32 | XMS_ITS | Clinical Summary ---
Author Organization [facility] Address [address] [place] [address] Phone Care Team Providers Care Vitreo Retinal Surgeon Name Role Phone Unavailable Unavailable Unavailable Reason for Visit and Chief Complaint PROCEDURE OFFICE Plan of Treatment No Plan of Treatment [...] Date Check-In Time Check- Out Time Diagnosis PROCEDURE OFFICE [facility] 0 1:00PM 11:59PM Clinical Notes Includes: Clinical Notes from this encounter No Clinical Notes Recorded
--- OUTSIDE RECORDS SUMMARY | 2024-09-26 12:32 | XMS_ITS | Clinical Summary ---
Author Organization [facility] Address [address] [place] [address] Phone Care Team Providers Care Optical Glass Sawyer Name Role Phone Unavailable Unavailable Unavailable Reason [...]
--- OUTSIDE RECORDS SUMMARY | 2024-09-26 12:32 | XMS_ITS ---
Author Organization [facility] Address [address] [place] [address] Phone Care Team Providers Care Title Department Manager Name Role Phone Unavailable Unavailable Unavailable Plan of Treatment No Plan of Treatment Recorded Assessments Includes: Assessments for all patient encounters No Assessments Recorded Medical Equipment - Implanted Devices Includes: Current and historical Devices No Medical Equipment Recorded Medications Administered Includes: Administered Medications in patient's chart No Administered Medications Recorded Results Includes: Results from 09/27/2023 through 09/26/2024 No Results Recorded For Specified Dates History of Present Illness History of Present Illness not supported for this document type No History of Present Illness Recorded Social History No Social History Recorded - Smoking Status Unknown Medical History Includes: Medical History in patient's chart No Medical History Recorded Family History Includes: Family History in patient's chart No Family History Recorded Review of Systems Review of Systems not supported for this document type No Review of Systems Recorded Mental Status No Mental Status Recorded Functional Status No Functional Status Recorded Physical Exam Physical Exam not supported for this document type No Physical Exam Recorded Clinical Notes Includes: Signed Clinical Notes starting from 06/15/2022 No Clinical Notes Recorded
--- OUTSIDE RECORDS SUMMARY | 2024-09-26 12:32 | XMS_ITS | Continuity of Care Document ---
Author Organization [facility] Address [address] [place] [address] Phone Care Team Providers Care Assembler Convertible Top Name Role Phone Mickie Ibarra MD Unavailable Unavailable Advance Directives Directive Yes / No Effective Date File Name No Information Encounters Encounter Description Practice Location Reason(s) For Visit Diagnoses Date Provider Providers Copied on Encounter [facility], [address], [place], [place], [id number], [place] tel:[phone] [facility] Professional No Information Apr-0 5-200 6 Stacey Corado. [address], [facility] [address], [place], [address], [place]. tel:[phone] Family History Family Member Type Diagnosis Age At Onset No Information Payers Payer name Insurance type Covered constitution party ID Authoriza tion(s) No Information Social History Type Description Quantity Date Captured Comments Sex Male Smoking Status No Information Chief Complaint And Reason For Visit No Information Reason For Referral Reason For Referral No Information History Of Present Illness Encounter Date Complaint History Of Prese nt Illness No Information Functional Status Date Functional Assessmen t No Information Instructions Date Instruction Additional Infor mation No Information Assessments Type Assessment Date No Information Patient Care Teams Name Effective Dates (start - stop) Status Members No Information
--- OUTSIDE RECORDS SUMMARY | 2024-09-26 13:05 | XMS_ITS | Continuity of Care Document ---
Author Organization [facility] Address [address] [place] [address] Phone Care Team Providers Care Reception Agent Name Role Phone Mickie Ibarra MD Unavailable Unavailable Advance Directives Directive Yes / No Effective Date File Name No Information Encounters Encounter Description Practice Location Reason(s) For Visit Diagnoses Date Provider Providers Copied on Encounter [facility], [address], [place], [place], [id number], [place] tel:[phone] [facility] Professional No Information Apr-0 5-200 6 Stacey Corado. [address], [facility] [address], [place], [address], [place]. tel:[phone] Family History Family Member Type Diagnosis Age At Onset No Information Payers Payer name Insurance type Covered republican ID Authoriza tion(s) No Information Social History [...]
== END 2024-09-25 14:04 | disposition home or self-care (01) ==
PROVIDERS: Emergency Provider Emergency Medicine; PCP Family Medicine
DX: L02.212 Cutaneous abscess of back [any part, except buttock and flank] (principal); I10 Essential (primary) hypertension; E78.2 Mixed hyperlipidemia; E66.9 Obesity, unspecified; Z68.32 Body mass index [BMI] 32.0-32.9, adult; K21.9 Gastro-esophageal reflux disease without esophagitis; G47.33 Obstructive sleep apnea (adult) (pediatric); Z85.46 Personal history of malignant neoplasm of prostate; Z87.891 Personal history of nicotine dependence
CPT/HCPCS: 10061; 99283; A9270